=== PATIENT | male | born 1930 | race Caucasian/White ===

== ENCOUNTER 2017-12-17 13:54 | Emergency (ER) | payer OTHER, BC ==
[~2017-12-17 13:54] MED LIST: ATRIN INH; CMD4 PO; DOCU100C31 PO; FURO40TA3 PO; HYDR0.5T PO; LPT20 PO; LSN25 PO; MRLP17 PO; POTA10TA32 PO; PRT40 PO; SPIR25TA PO; TPRSR25 PO; XPNIN INH
[2017-12-17 13:56] VITALS: Ht 172.7 cm
[2017-12-17] MEDS ORDERED: ACETAMINOPHEN 500 MG TAB PO STA (14:19)
[2017-12-17] MEDS ORDERED: SODIUM CHLORIDE 0.9% 1000ML 1,000 ML IV STA ×2 (14:23→17:25)
[2017-12-17] MEDS ORDERED: OPTIRAY 320 IV PRN (14:30)
[2017-12-17] MEDS ORDERED: ASCO500T3 PO (14:35)
[2017-12-17] MEDS ORDERED: HYDR200T5 PO (14:35)
[2017-12-17] MEDS ORDERED: LOSA1TAB PO (14:35)
[2017-12-17] MEDS ORDERED: WARF2TAB PO ×2 (14:35)
[2017-12-17] MEDS ORDERED: FERR1TAB13 PO (14:35)
[2017-12-17] MEDS ORDERED: PANT40TA PO (14:35)
[2017-12-17] MEDS ORDERED: METO25TA3 PO (14:35)
--- NOTE | 2017-12-17 14:41 | EMERGENCY ROOM VISIT NOTE ---
History Report prepared by Mateus: Jero Hassan Under the Supervision of: Dr. Bea Fernandes D.O. First contact with patient: 14:04 Chief Complaint: CONFUSION Stated Complaint: CONFUSED,DIZZY History of Present Illness The patient is an 87 year old male who presents to the Emergency Room with complaints of persistent dizziness and weakness starting yesterday. Per the patient's son, the patient stared getting weak and not feeling well yesterday. He additionally got dizzy, and today he vomited after eating soup. The son states that the patient seemed disoriented, and he also had a fever. Pt now improved. The patient states that he has been having some mild abdominal pain which began after eating the soup and feeling nauseated, and he states that his last bowel movement was this morning at 0730, and it was normal. He denies any hematochezia or melena. He notes that he has a runny nose and mild cough, though he does not feel short of breath. The patient additionally states that he has been having more shoulder pain than usual, and he states that he has been unable to move it as well. 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 The patient denies any urinary symptoms. He is currently on blood thinners for a valve replacement. Patient lives with his at home. Source of History: patient, family Onset: yesterday Position: other (global) Quality: other (dizziness and weakness) Timing: other (persistent) Associated Symptoms: + fevers, + cough, + vomiting, + abdominal pain, No melena, No hematochezia, No urinary symptoms Review of Systems See HPI for pertinent positives & negatives. A total of 10 systems reviewed and were otherwise negative. Past Medical & Surgical Surgical Problems: (1) Heart valve replaced Family History Cancer Heart disease Social History Smoking Status: Former Smoker Marital Status: Housing Status: lives with family Occupation Status: retired Current/Historical Medications Scheduled Ascorbic Acid (Vitamin C), 500 MG PO BID Atorvastatin (Lipitor), 20 MG PO HS Ferrous Sulfate (Kp Ferrous Sulfate), 325 MG PO BID Furosemide (Lasix), 40-80 MG PO DAILY Hydroxychloroquine Sulfate (Plaquenil), 200 MG PO BID Ipratropium Myrtle (Atrovent Hfa), 2 PUFFS INH QID Losartan Potassium (Cozaar), 25 MG PO QAM Metoprolol Succinate (Toprol Xl), 12.5 MG PO BID Pantoprazole (Protonix), 40 MG PO QAM Potassium Chloride Microencaps (Potassium Chloride Er), 10 MEQ PO BID Warfarin Sodium (Coumadin), 4 MG PO [id number] Warfarin Sodium (Coumadin), 6 MG PO WK Allergies Coded Allergies: No Known Allergies (Unverified , 12/17/17) Physical Exam Vital Signs Date Time Temp Pulse Resp B/P (MAP) Pulse Ox O2 Delivery O2 Flow Rate FiO2 12/17/17 19:59 82 18 120/56 93 12/17/17 19:22 37.3 82 20 120/56 93 Room Air 12/17/17 19:11 65 20 109/53 94 Room Air 68 114/64 72 120/56 12/17/17 18:30 60 12/17/17 17:12 37.5 66 18 111/56 94 Room Air 12/17/17 16:07 37.6 65 18 131/79 94 Nasal Cannula 3.0 12/17/17 14:39 72 12/17/17 13:56 39.4 73 24 123/63 93 Room Air Physical Exam GENERAL: alert, well appearing, well nourished, no distress, non-toxic, hard of hearing EYE EXAM: normal conjunctiva, PERRL and EOM's grossly intact OROPHARYNX: no exudate, no erythema, lips, buccal mucosa, and tongue normal and mucous membranes are moist NECK: supple, no nuchal rigidity, no adenopathy, non-tender LUNGS: Clear to auscultation. Normal chest wall mechanics HEART: Systolic ejection murmur 3/6, S1 normal and S2 normal ABDOMEN: Mildly tympanitic, abdomen soft, non-tender, normo-active bowel sounds , no masses, no rebound or guarding. BACK: Back is symmetrical on inspection and there is no deformity, no midline tenderness, no CVA tenderness. SKIN: no rashes and no bruising UPPER EXTREMITIES: Decreased range of motion at the right shoulder secondary to pain. upper extremities are grossly normal. LOWER EXTREMITIES: 1+ pitting edema to the bilateral lower extremity. Pt and son state this is chronic. NEURO EXAM: Normal sensorium, cranial nerves II-XII grossly intact, normal speech, no gross weakness of arms, no gross weakness of legs. Medical Decision & Procedures ER Provider Diagnostic Interpretation: Radiology results have been interpreted by the radiologist and reviewed by me. CT head with without intravenous contrast. HISTORY: dizzy, vomiting, right neck pain/shoulder pain TECHNIQUE: Multiaxial CT images of the head were performed both before and after the intravenous administration of contrast. COMPARISON STUDY: Head CT 06/03/2015. FINDINGS: The calvarium and skull base are intact. Paranasal sinuses and left mastoid air cells are clear. Small right mastoid effusion. Mild atrophy which is likely age-related. No abnormal enhancement. There is no mass, hematoma, midline shift, acute infarct. IMPRESSION: No acute intracranial abnormality. Electronically signed by: Avelino Chamberlain M.D. 12/17/2017 4:20 PM Dictated Date/Time: 12/17/2017 4:16 PM CHEST AND ABDOMEN 2 VIEWS HISTORY: n/v, fever COMPARISON: Chest 06/04/2015. Abdomen and pelvis CT 05/28/2015. FINDINGS: The heart remains enlarged. No focal lung consolidations to suggest pneumonia. Aortic valve prosthesis is noted. Left-sided single lead pacemaker. No evidence for pulmonary edema. No pleural effusions. No pneumothorax. No pneumoperitoneum. No pneumatosis. Surgical clips within the pelvis. No dilated loops of bowel to suggest an obstruction. No renal or ureteral calculi identified. A few nondilated gas-filled loops of bowel seen within the right side the abdomen. IMPRESSION: 1. Stable cardiomegaly. 2. Unremarkable bowel gas pattern. No evidence for bowel obstruction. Electronically signed by: Avelino Chamberlain M.D. 12/17/2017 3:52 PM Dictated Date/Time: 12/17/2017 3:50 PM Laboratory Results 12/17/17 14:35 Red Blood Count 3.50, Mean Corpuscular Volume 98.0, Mean Corpuscular Hemoglobin 31.7, Mean Corpuscular Hemoglobin Concent 32.4, Mean Platelet Volume 9.5, Neutrophils (%) (Auto) 89.5, Lymphocytes (%) (Auto) 5.1, Monocytes (%) (Auto) 4.7, Eosinophils (%) (Auto) 0.2, Basophils (%) (Auto) 0.1, Neutrophils # (Auto) 8.69, Lymphocytes # (Auto) 0.50, Monocytes # (Auto) 0.46, Eosinophils # (Auto) 0.02, Basophils # (Auto) 0.01 12/17/17 14:35 Test 12/17/17 14:35 12/17/17 14:41 12/17/17 15:12 12/17/17 17:25 White Blood Count 9.72 K/uL (4.8-10.8) Red Blood Count 3.50 M/uL (4.7-6.1) Hemoglobin 11.1 g/dL (14.0-18.0) Hematocrit 34.3 % (42-52) Mean Corpuscular Volume 98.0 fL (80-100) Mean Corpuscular Hemoglobin 31.7 pg (25-34) Mean Corpuscular Hemoglobin Concent 32.4 g/dl (32-36) Platelet Count 163 K/uL (130-400) Mean Platelet Volume 9.5 fL (7.4-10.4) Neutrophils (%) (Auto) 89.5 % Lymphocytes (%) (Auto) 5.1 % Monocytes (%) (Auto) 4.7 % Eosinophils (%) (Auto) 0.2 % Basophils (%) (Auto) 0.1 % Neutrophils # (Auto) 8.69 K/uL (1.4-6.5) Lymphocytes # (Auto) 0.50 K/uL (1.2-3.4) Monocytes # (Auto) 0.46 K/uL (0.11-0.59) Eosinophils # (Auto) 0.02 K/uL (0-0.5) Basophils # (Auto) 0.01 K/uL (0-0.2) RDW Standard Deviation 56.4 fL (36.4-46.3) RDW Coefficient of Variation 15.7 % (11.5-14.5) Immature Granulocyte % (Auto) 0.4 % Immature Granulocyte # (Auto) 0.04 K/uL (0.00-0.02) Prothrombin Time 29.2 SECONDS (9.0-12.0) Prothromb Time International Ratio 2.8 (0.9-1.1) Anion Gap 9.0 mmol/L (3-11) Estimated GFR () 58.6 Estimated GFR (Non- 50.6 BUN/Creatinine Ratio 20.8 (10-20) Calcium Level 8.9 mg/dl (8.5-10.1) Magnesium Level 2.2 mg/dl (1.8-2.4) Total Bilirubin 0.6 mg/dl (0.2-1) Aspartate Amino Transf (AST/SGOT) 24 U/L (15-37) Alanine Aminotransferase (ALT/SGPT) 20 U/L (12-78) Alkaline Phosphatase 91 U/L (45-117) Troponin I 0.022 ng/ml (0-0.045) Total Protein 7.5 gm/dl (6.4-8.2) Albumin 3.3 gm/dl (3.4-5.0) Globulin 4.2 gm/dl (2.5-4.0) Albumin/Globulin Ratio 0.8 (0.9-2) Lipase 154 U/L (73-393) Bedside Lactic Acid Venous 1.36 mmol/L (0.90-1.70) Influenza Type A Antigen Neg for Influ A (NEG) Influenza Type B Antigen Neg for Influ B (NEG) Urine Color YELLOW Urine Appearance CLEAR (CLEAR) Urine pH 5.0 (4.5-7.5) Urine Specific [place] > 1.045 (1.000-1.030) Urine Protein NEG (NEG) Urine Glucose (UA) NEG (NEG) Urine Ketones NEG (NEG) Urine Occult Blood NEG (NEG) Urine Nitrite NEG (NEG) Urine Bilirubin NEG (NEG) Urine Urobilinogen NEG (NEG) Urine Leukocyte Esterase NEG (NEG) Laboratory results per my review. Medications Administered Medications (Trade) Dose Ordered Sig/Ivky Route Start Time Stop Time Status Last Admin Dose Admin Acetaminophen (Tylenol Tab) 1,000 mg NOW STAT PO 12/17/17 14:19 12/17/17 14:23 DC 12/17/17 15:06 1,000 MG Sodium Chloride 1,000 ml @ 500 mls/hr Q2H STAT IV 12/17/17 14:23 12/17/17 16:22 DC 12/17/17 15:10 500 MLS/HR ECG Indication: weakness, other (dizziness) Rate (beats per minute): 73 Rhythm: other (Paced rhythm) Findings: PVC, no acute ischemic change, left axis deviation, other (Prolonged QRS and QTc consistent with pacing) Change: EKG: Patient's electrocardiogram per my interpretation. ED Course 1404: The patient was evaluated in room B4. A complete history and physical exam was performed. 1419: Tylenol Tab 1000mg PO 1423: Sodium Chloride 1000 ml @ 500 mls/hr IV 1630: I reevaluated the patient, and he was not having anymore nausea. Repeat abdominal exam soft and nontender. He feels a little weak and light headed but improved, and I updated them on the results thus far. Son states pt appears improved. No recurrent confusion. 1916: I reassessed the patient, and he was able to walk around very well. No SOB during ambulation. Repeat abd exam soft/NT, pt tolerating po at bedside without complaints or symptoms. Pt states he feels much better since receiving IVF. No recurrent fevers. 1931: I had an extensive conversation with the patient and his son, and they are comfortable with him going home. I discussed symptoms to watch and return for, and they are agreeable to the plan. Discussed at length sx to watch/ return for, need for recheck by PCP in 1-2 days, diet/hydration, pending blood cultures, he and son verbalized understanding. Son states pt appears at his usual baseline at this time. Feels comfortable taking him home and will check on him frequently over the next several days. Medical Decision Differential diagnosis: Etiologies such as viral syndrome, otitis, pharyngitis, pneumonia, influenza, meningitis, urinary tract infection, sepsis, bacteremia, benign positional vertigo, dehydration, hypovolemia, anemia, tumor, infection, hypoglycemia, electrolyte abnormalities, cardiac sources, intracerebral event, toxicologic, neurologic, as well as others were entertained. Pt here oriented and at baseline per family. LIghtheaded recently with nausea and mild abd pain following meal today. Initial and repeat abdominal exams soft and NT. Pt with no recurrent fever. No obvious source of infection. No known sick contact. Pt observed here for many hours out of an abundance of caution and no evolution or worsening of symptoms. Extensive bedside discussion regarding dc vs admission. Pt improved with IVF and tylenol. I do not suspect mesenteric ischemia, colitis, perf, gi bleed, aaa, dissection, acs, bacteremia/sepsis. Doubt cholecystitic, pancreatitis, sbo. Doubt occult pneumonia. Doubt meningitis/encephalitis, I feel possible mild transient mentation possibly due to fever. Discussed adequate hydration and bland diet. Discussed at length sx to watch for, discussed possible ddx, discussed close f/ u. Pt well appearing at discharge, anxious to go home, verbalized understanding and agreeable with plans. Medication Reconcilliation Current Medication List: was personally reviewed by me Blood Pressure Screening Patient's blood pressure: Normal blood pressure Impression Primary Impression: Fever Additional Impressions: Lightheaded Nausea & vomiting Scribe Attestation The scribe's documentation has been prepared under my direction and personally reviewed by me in its entirety. I confirm that the note above accurately reflects all work, treatment, procedures, and medical decision making performed by me. Departure Information Dispostion Home / Self-Care Referrals Caleb Escobra M.D. (PCP) Forms HOME CARE DOCUMENTATION FORM, IMPORTANT VISIT INFORMATION, WORK / SCHOOL INSTRUCTIONS Patient Instructions ED Fever Control, ED Fever Unconf Cause, My [facility] Additional Instructions Please continue regular medications as prescribed. Your INR today (Coumadin level) was 2.8. Please sip clear liquids, primarily water, at regular intervals to stay well-hydrated. Please eat a bland diet until you're feeling better. Please continue to monitor your bowel movements for any changes if your stools appear black or use any blood, please return the emergency room. If you feel you are more unsteady or off-balance, develop chest pain, belly pain , recurrent vomiting, recurrent fevers, or you've any other new concerns please return the emergency room. Use Tylenol as needed for pain. Blood cultures were sent as a precaution. If these are abnormal, you'll receive a phone call. Please: Follow up with her family doctor in the next 2 days to be rechecked as a precaution. Problem Qualifiers Primary Impression: Fever Fever type: unspecified Qualified Codes: R50.9 - Fever, unspecified Additional Impressions: Nausea & vomiting Vomiting type: unspecified Vomiting Intractability: non-intractable Qualified Codes: R11.2 - Nausea with vomiting, unspecified
[2017-12-17 15:00] LABS: BASO % 0.1 %; BASO ABS # 0.01 K/uL (0-0.2); EOS % 0.2 %; EOS ABS # 0.02 K/uL (0-0.5); HEMATOCRIT 34.3 % (42-52); HEMOGLOBIN 11.1 g/dL (14.0-18.0); IG# 0.04 K/uL (0.00-0.02); LYMPH % 5.1 %; MEAN CORPUSCULAR HEMOGLOBIN 31.7 pg (25-34); MEAN CORPUSCULAR HGB CONC 32.4 g/dl (32-36); MEAN PLATELET VOLUME 9.5 fL (7.4-10.4); MONO % 4.7 %; MONO ABS # 0.46 K/uL (0.11-0.59); NEUT % 89.5 %; NEUT ABS # 8.69 K/uL (1.4-6.5); PLATELET COUNT 163 K/uL (130-400); RED CELL DISTRIBUTION WIDTH CV 15.7 % (11.5-14.5); RED CELL DISTRIBUTION WIDTH SD 56.4 fL (36.4-46.3); WHITE BLOOD COUNT 9.72 K/uL (4.8-10.8)
[2017-12-17 15:08] LABS: INR 2.8 (0.9-1.1)
[2017-12-17 15:14] LABS: ALBUMIN 3.3 gm/dl (3.4-5.0); ALT/SGPT 20 U/L (12-78); BLOOD UREA NITROGEN 26 mg/dl (7-18); CALCIUM 8.9 mg/dl (8.5-10.1); CARBON DIOXIDE 28 mmol/L (21-32); CREATININE 1.26 mg/dl (0.60-1.40); GLUCOSE 118 mg/dl (70-99); LIPASE 154 U/L (73-393); POTASSIUM 4.2 mmol/L (3.5-5.1); SODIUM 138 mmol/L (136-145)
[2017-12-17 15:19] LABS: ALKALINE PHOSPHATASE 91 U/L (45-117); AST/SGOT 24 U/L (15-37); TOTAL PROTEIN 7.5 gm/dl (6.4-8.2)
[2017-12-17 15:40] LABS: INFLUENZA B ANTIGEN Neg for Influ B (NEG)
--- NOTE | 2017-12-17 15:53 | DIAGNOSTIC IMAGING REPORT ---
CHEST AND ABDOMEN 2 VIEWS HISTORY: n/v, fever COMPARISON: Chest 06/04/2015. Abdomen and pelvis CT 05/28/2015. FINDINGS: The heart remains enlarged. No focal lung consolidations to suggest pneumonia. Aortic valve prosthesis is noted. Left-sided single lead pacemaker. No evidence for pulmonary edema. No pleural effusions. No pneumothorax. No pneumoperitoneum. No pneumatosis. Surgical clips within the pelvis. No dilated loops of bowel to suggest an obstruction. No renal or ureteral calculi identified. A few nondilated gas-filled loops of bowel seen within the right side the abdomen. IMPRESSION: 1. Stable cardiomegaly. 2. Unremarkable bowel gas pattern. No evidence for bowel obstruction. Electronically signed by: Avelino Chamberlain M.D. 12/17/2017 3:52 PM Dictated Date/Time: 12/17/2017 3:50 PM
--- NOTE | 2017-12-17 16:22 | DIAGNOSTIC IMAGING REPORT ---
CT head with without intravenous contrast. HISTORY: dizzy, vomiting, right neck pain/shoulder pain TECHNIQUE: Multiaxial CT images of the head were performed both before and after the intravenous administration of contrast. COMPARISON STUDY: Head CT 06/03/2015. FINDINGS: The calvarium and skull base are intact. Paranasal sinuses and left mastoid air cells are clear. Small right mastoid effusion. Mild atrophy which is likely age-related. No abnormal enhancement. There is no mass, hematoma, midline shift, acute infarct. IMPRESSION: No acute intracranial abnormality. Electronically signed by: Avelino Chamberlain M.D. 12/17/2017 4:20 PM Dictated Date/Time: 12/17/2017 4:16 PM
[2017-12-17 19:22] VITALS: TEMP 37.3
[2017-12-17 19:59] VITALS: BP 120/56; PULSE 82; O2SAT 93
== END 2017-12-17 20:02 | disposition home or self-care (01) ==
LOC: C.EDB 13:56
DX: R50.9 Fever, unspecified (principal); R11.2 Nausea with vomiting, unspecified; R42 Dizziness and giddiness; Z95.2 Presence of prosthetic heart valve; Z80.9 Family history of malignant neoplasm, unspecified; Z87.891 Personal history of nicotine dependence; Z79.01 Long term (current) use of anticoagulants; Z79.899 Other long term (current) drug therapy

== ENCOUNTER → 2018-07-04 | Outpatient (CLI) | payer OTHER, BC ==
[~2018-07-04] MED LIST changes: +ACET-1693 PO; +ASCO500T3 PO; -ATRIN INH; -CMD4 PO; -DOCU100C31 PO; +FERR1TAB13 PO; +FLM4 PO; -HYDR0.5T PO; +HYDR200T5 PO; +LOSA1TAB PO; -LSN25 PO; +METO25TA4 PO; -MRLP17 PO; +MULT-190 PO; +PANT40TA PO; -PRT40 PO; -SPIR25TA PO; -TPRSR25 PO; +WARF2TAB PO; -XPNIN INH
== END | disposition home or self-care (01) ==
LOC: C.LAB1850 15:16
PROVIDERS: ATTEND Internal Medicine Rheumatology
DX: M81.0 Age-related osteoporosis without current pathological fracture (principal)

== ENCOUNTER → 2018-07-10 | Outpatient (CLI) | payer OTHER, BC | END | disposition home or self-care (01) | LOC: C.MAMM 07:50 | PROVIDERS: ATTEND Internal Medicine Rheumatology | DX: M05.9 Rheumatoid arthritis with rheumatoid factor, unspecified (principal); Z79.899 Other long term (current) drug therapy; M81.0 Age-related osteoporosis without current pathological fracture; M85.80 Other specified disorders of bone density and structure, unspecified site; E55.9 Vitamin D deficiency, unspecified ==

== ENCOUNTER 2018-12-05 04:05 | Inpatient (IN) ==
[2018-12-05 04:42] LABS: Hematocrit (blood only) 30.4 % (42-52); Hemoglobin 9.4 g/dL (14.0-18.0); Mean Corpuscular Hgb Conc 30.9 g/dL (32-36); Mean Corpuscular Volume 93.8 fL (80-100); Mean Platelet Volume 8.2 fL (7.4-10.4); Platelet Count 230 K/uL (130-400); RDW Coefficient of Variation 17.3 % (11.5-14.5); RDW Standard Deviation 59.1 fL (36.4-46.3); Red Blood Count 3.24 M/uL (4.7-6.1); White Blood Count 7.09 K/uL (4.8-10.8)
[2018-12-05 05:05] LABS: INR 2.3 (0.9-1.1); Prothrombin Time 21.8 Seconds (9.0-12.0)
[2018-12-05 06:12] LABS: Bilirubin Urine Negative (Negative); Glucose Urine UA Negative (Negative); Ketones Urine Negative (Negative); Leukocyte Esterase Urine Negative (Negative); Nitrite Urine Negative (Negative); Protein Urine 3+ (Negative); Urobilinogen Urine Negative (Negative)
[2018-12-05 06:16] LABS: Appearance Urine Turbid (Clear); Color Urine Red
[2018-12-05 06:30] LABS: WBC Urine Automated >30 /hpf (0-5)
[2018-12-05 06:31] LABS: Bacteria Urine Automated Negative (Negative); Cast Urine Automated 0 /lpf (0-5)
[2018-12-05 06:59] LABS: Calcium 8.5 mg/dl (8.5-10.1); Creatinine Clr Calc Pharmacy 34.5 ml/min; Est GFR (African American) 55.6; Est GFR (Non-African American) 47.9; Potassium 3.9 mmol/L (3.5-5.1)
--- NOTE | 2018-12-05 07:18 | Emergency Department Note ---
Entered by Arely Andrews acting as a scribe for History of Present Illness General Chief complaint: Urinary Symptoms Stated complaint: CAN'T URINATE Time Seen by Provider: 12/05/18 04:16 Source: patient and family (son) History of Present Illness Onset (ago): minute(s) ([facility]ACTICE PSYCHIATRIC NURSE) Location: abdomen Severity: similar to prior episodes Pain Consistency: + other (persistent ) Quality: + other (hematuria and difficulty urinating) Associated symptoms: + other (lower extremity swelling) The patient is a 88 year old male who presents to the Emergency Room with complaints of persistent urinary symptoms that earlier this morning, noting that he "came as soon as it started." The patient complains of hematuria and difficulty urinating. The patient states that this is similar to previous episodes. He reports that he last urinated a few hours ago. His son, at bedside , states that he has had a catheter to relieve his symptoms in the past. The patient's son reports that the patient has gone home with a catheter before, but it "just gets plugged up and we're back in the ER." He reports that the patient has been taken of Coumadin the past to help relieve his symptoms. The patient complains of lower extremity swelling. He reports a history of CHF and a valve replacement. Home Medications Home Medications Medication Instructions Recorded Confirmed Type atorvastatin 20 mg PO HS 09/21/18 12/05/18 History docusate sodium 100 mg PO BID PRN 09/21/18 12/05/18 History ferrous sulfate 325 mg PO BID 09/21/18 12/05/18 History hydroxychloroquine 200 mg PO BID 09/21/18 12/05/18 History pantoprazole 40 mg PO DAILY 09/21/18 12/05/18 History potassium chloride 10 meq PO BID 09/21/18 12/05/18 History tamsulosin 0.4 mg PO DAILY 09/21/18 12/05/18 History furosemide 40 mg PO BID 10/05/18 12/05/18 History metoprolol tartrate 12.5 mg PO BID 10/05/18 12/05/18 History ergocalciferol (vitamin D2) 50,000 unit PO WK 10/07/18 12/05/18 History prednisone 15 mg PO DAILY #1 tab 10/16/18 12/05/18 Rx acetaminophen [Tylenol Extra 500 mg PO Q4 PRN 11/14/18 12/05/18 History Strength] dextran 70-hypromellose 1 drp OPHTHALMIC (EYE) BID 11/14/18 12/05/18 History [Artificial Tears (PF)] vit C,L-Pf-wlnzz-lutein-zeaxan 1 tab PO BID 11/14/18 12/05/18 History [PreserVision AREDS-2] warfarin 4 mg PO HS 11/14/18 12/05/18 History Allergies Allergy/AdvReac Type Severity Reaction Status Date / Time No Known Allergies Allergy Verified 12/05/18 06:11 Past Med/Surg History Medical History Atrial fibrillation HTN (hypertension) (Chronic) Pacemaker (Resolved) 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) Prostate cancer (Resolved) H/O deep venous thrombosis (Resolved) Rheumatoid arthritis (Chronic) 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) GERD (gastroesophageal reflux disease) (Chronic) Dyslipidemia (Chronic) Blood clot in vein (Resolved) Hypertension (Chronic) CHF (congestive heart failure) (Chronic) Acute pancreatitis (Resolved) Pseudogout (Chronic) Surgical History S/P aortic valve replacement with bioprosthetic valve (Resolved) S/P prostatectomy (Resolved) Heart valve replaced (Chronic) Family History Other No pertinent family history Social History marital status: Current Living Situation: Spouse Feels Safe at Home: Yes and No Is there a partner from a previous relationship who is making you feel unsafe now?: No Smoking Status: Former smoker Second Hand Exposure: No Hx Alcohol Use: No Hx Substance Use: No Beliefs That Will Affect Care: None Preferred Language: Greenlandic Review of Systems See HPI for pertinent positives & negatives. and A total of 10 systems reviewed and were otherwise negative Physical Exam Vital Signs Vital Signs - 24 hr 12/05/18 04:09 12/05/18 05:32 12/05/18 06:25 Temperature 36.6 C Temperature Source Oral Sepsis Recent Fever Within 48 Hours No Sepsis Action Taken by Nursing No Action Required Pulse Rate 78 Pulse Rate [Left Finger] 61 62 Respiratory Rate 16 20 20 Respiratory Depth Normal Normal Blood Pressure 130/77 Blood Pressure [Right Arm] 126/57 L 118/60 Blood Pressure Mean 94 Blood Pressure Mean [Right Arm] 80 79 Pulse Oximetry 90 96 Oxygen Delivery Method Room Air Room Air HEENT: Head - normocephalic and atraumatic Pupils are equal, round, and reactive to light. Extraocular eye muscles are intact, and sclera are anicteric. Nose - moist nasal mucosa without discharge. Mouth - moist buccal mucosa. Oropharynx is nonerythematous and there is no tonsillar exudate or edema noted. Neck: Supple; no JVD, nuchal rigidity, cervical lymphadenopathy. Heart: Regular rate and rhythm. There is a normal S1 and S2 with no murmurs, clicks, or gallops appreciated. Lungs: Clear to auscultation bilaterally with no wheezes, rales, or rhonchi. Abdomen: Soft, completely nontender, nondistended, with good bowel sounds. There are no palpable pulsatile masses or hepatosplenomegaly. There is no guarding, rigidity, or rebound noted. Extremities: No evidence of cyanosis, clubbing, or edema. There are easily palpable peripheral pulses. Skin: Dry with poor turgor and no rashes. Course 0418: Past medical records reviewed. The patient was evaluated in room C09, and a complete history and physical examination were performed. A bladder scan was performed and showed greater than 300 mL of urine. A Calle catheter was placed. 0526: The nursing staff irrigated the bladder with a liter, and they got clots out. The urine turned pink, and then it turned red again. The nursing staff will put in a 3-way catheter. 0601: The nursing staff was unable to pass a 3-way catheter. I reviewed multiple previous notes from urology. The nursing staff removed the 3-way and replaced it with a calle catheter. 0614: I spoke with Dr. Yessi Amato, [facility] hospitalist, about the patient's case. She will evaluate the patient further. Consultations Consultation #1: I spoke with Dr. Yessi Amato, [facility] hospitalist, about the patient's case. She will evaluate the patient further. Time: 06:14 Medical Decision Making Differential Diagnosis The differential diagnosis includes: supratherapeutic INR and urinary retention. Medical Records Attestation: I reviewed the patient's medical records. Home Medications Current Medication List: was personally reviewed by me Laboratory Data Attestation: I reviewed the patient's lab results. Result diagrams: 12/05/18 04:30 12/05/18 04:30 Lab Results 12/05/18 12/05/18 12/05/18 Range/Units 04:30 04:30 04:30 WBC 7.09 (4.8-10.8) K/uL RBC 3.24 L (4.7-6.1) M/uL Hgb 9.4 L (14.0-18.0) g/dL Hct 30.4 L (42-52) % MCV 93.8 (80-100) fL MCH 29.0 (25-34) pg MCHC 30.9 L (32-36) g/dL RDW Std Deviation 59.1 H (36.4-46.3) fL RDW Coeff of Gopal 17.3 H (11.5-14.5) % Plt Count 230 (130-400) K/uL MPV 8.2 (7.4-10.4) fL PT 21.8 H (9.0-12.0) Seconds INR 2.3 H (0.9-1.1) Sodium 142 (136-145) mmol/L Potassium 3.9 (3.5-5.1) mmol/L Chloride 105 (98-107) mmol/L Carbon Dioxide 32 (21-32) mmol/L Anion Gap 5.0 (3-11) BUN 31 H (7-18) mg/dl Creatinine 1.31 (0.6-1.4) mg/dl Est Cr Clr Drug Dosing 34.5 ml/min Est GFR ( Amer) 55.6 Est GFR (Non-Af Amer) 47.9 BUN/Creatinine Ratio 24.0 H (10-20) Glucose 102 H (70-99) mg/dl Calcium 8.5 (8.5-10.1) mg/dl Urine Color Urine Appearance (Clear) Urine pH (4.5-7.5) Ur Specific Kaiser (1.000-1.030) Urine Protein (Negative) Urine Glucose (UA) (Negative) Urine Ketones (Negative) Urine Blood (Negative) Urine Nitrite (Negative) Urine Bilirubin (Negative) Urine Urobilinogen (Negative) Ur Leukocyte Esterase (Negative) Urine WBC (Auto) (0-5) /hpf Urine RBC (Auto) (0-4) /hpf U Hyaline Cast (Auto) (0-5) /lpf U Epithel Cells (Auto) (0-5) /lpf Urine Bacteria (Auto) (Negative) 12/05/18 Range/Units 05:25 WBC (4.8-10.8) K/uL RBC (4.7-6.1) M/uL Hgb (14.0-18.0) g/dL Hct (42-52) % MCV (80-100) fL MCH (25-34) pg MCHC (32-36) g/dL RDW Std Deviation (36.4-46.3) fL RDW Coeff of Gopal (11.5-14.5) % Plt Count (130-400) K/uL MPV (7.4-10.4) fL PT (9.0-12.0) Seconds INR (0.9-1.1) Sodium (136-145) mmol/L Potassium (3.5-5.1) mmol/L Chloride (98-107) mmol/L Carbon Dioxide (21-32) mmol/L Anion Gap (3-11) BUN (7-18) mg/dl Creatinine (0.6-1.4) mg/dl Est Cr Clr Drug Dosing ml/min Est GFR ( Amer) Est GFR (Non-Af Amer) BUN/Creatinine Ratio (10-20) Glucose (70-99) mg/dl Calcium (8.5-10.1) mg/dl Urine Color Red Urine Appearance Turbid H (Clear) Urine pH 7.0 (4.5-7.5) Ur Specific Kaiser 1.020 (1.000-1.030) Urine Protein 3+ H (Negative) Urine Glucose (UA) Negative (Negative) Urine Ketones Negative (Negative) Urine Blood 3+ H (Negative) Urine Nitrite Negative (Negative) Urine Bilirubin Negative (Negative) Urine Urobilinogen Negative (Negative) Ur Leukocyte Esterase Negative (Negative) Urine WBC (Auto) >30 H (0-5) /hpf Urine RBC (Auto) >30 H (0-4) /hpf U Hyaline Cast (Auto) 0 (0-5) /lpf U Epithel Cells (Auto) 10-20 H (0-5) /lpf Urine Bacteria (Auto) Negative (Negative) Blood Pressure Blood Pressure Findings: Low blood pressure Blood Pressure Disposition: further management by hospitalist MDM Narrative The patient is a 88 year old male who presents to the Emergency Room with complaints of persistent urinary symptoms that earlier this morning, noting that he "came as soon as it started." The patient has a history of previous episodes of urinary retention and hematuria with clots. The patient takes Coumadin for A. fib. 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 The patient had obvious hematuria with clots. A Calle catheter was placed in nursing staff irrigated with a liter of saline. This removed many clots in the urine was simply pink for some time. Nursing staff noted that the urine was becoming more dark red. They attempted to place a three-way catheter for bladder irrigation but were unsuccessful in passing the 20 [place] [address] three- way catheter. I asked them to replace Calle catheter. He continues to drain significant amount of blood. The patient is anemic at baseline and has an INR of 2.3. I discussed the case with the [facility] Hospitalist and they will evaluate for further management. Impression & Plan Hematuria Discharge Plan Visit Data Chief Complaint: Urinary Symptoms Stated Complaint: CAN'T URINATE ED Provider: Sarah Robin Discharge Problem: Hematuria Patient Disposition: Being Evaluated by Hospitalist Forms Stand Alone Forms: My [facility] Prescriptions Prescriptions: No Action potassium chloride 10 mEq Capsule, Extended Release 10 meq PO BID RF: 0 atorvastatin 20 mg Tablet 20 mg PO HS RF: 0 tamsulosin 0.4 mg Capsule 0.4 mg PO DAILY RF: 0 pantoprazole 40 mg Tablet,Delayed Release (Dr/Ec) 40 mg PO DAILY RF: 0 ferrous sulfate 325 mg (65 mg iron) Tablet 325 mg PO BID RF: 0 docusate sodium 100 mg Capsule 100 mg PO BID PRN (Reason: Constipation) RF: 0 hydroxychloroquine 200 mg Tablet 200 mg PO BID RF: 0 metoprolol tartrate 25 mg Tablet 12.5 mg PO BID RF: 0 furosemide 40 mg tablet 40 mg PO BID RF: 0 ergocalciferol (vitamin D2) 50,000 unit Capsule 50,000 unit PO WK RF: 0 prednisone 20 mg Tablet 15 mg PO DAILY Qty: 1 RF: 0 warfarin 4 mg Tablet 4 mg PO HS RF: 0 acetaminophen [Tylenol Extra Strength] 500 mg Tablet 500 mg PO Q4 PRN (Reason: mild pain/fever) RF: 0 dextran 70-hypromellose [Artificial Tears (PF)] Dropperette 1 drp OPHTHALMIC (EYE) BID RF: 0 vit C,F-Yv-vhigs-lutein-zeaxan [PreserVision AREDS-2] [id number] mg-unit-mg- mg Capsule 1 tab PO BID RF: 0 Referrals Referrals: PCP,NO [Primary Care Provider] - The scribe's documentation has been prepared under my direction and personally reviewed by me in its entirety. I confirm that the note above accurately reflects all work, treatment, procedures, and medical decision making performed by me.
--- NOTE | 2018-12-05 08:32 | History & Physical Report ---
Date of Service December 05, 2018 Assessment & Plan (1) Hematuria: (2) Prostate cancer: (3) S/P prostatectomy: -[facility] -Continue Lozano cath with irrigation, bladder scan QS and post void residuals to ensure not clot blockage -Hold Coumadin with gross hematuria at this point in time, resume as soon as able -Urology consulted, Dr. Mazariegos -Follow UCx (4) Atrial fibrillation: -Rate controlled, continue metoprolol 12.5 mg p.o. BID -HOLD Coumadin with gross hematuria as above: Normal home regimen is 4 mg 6x per week and then 6 mg on Mondays. -Consider cardiology consultation or discussion with their team regarding thromboembolic prophylaxis (5) S/P aortic valve replacement with bioprosthetic valve: (6) Aortic stenosis: (7) H/O deep venous thrombosis: (8) Pacemaker: (9) HTN (hypertension): (10) CHF (congestive heart failure): - Chronic diastolic - continue Lasix 40 mg p.o. QAM and 20 mg Qafternoon, metoprolol as above - Follow volume status, currently with 1+ pitting in BLE but pt reports this is about normal, no sob, adequate pulse ox on RA, +faint crackles in lung bibasilarly at time of admission. -Follows with Heart Failure clinic as outpatient - Follows with Dr. Bruner for pacemaker device (11) GERD (gastroesophageal reflux disease): -Continue Protonix 40 mg daily (12) Dyslipidemia: -Continue statin therapy daily (13) Rheumatoid arthritis: -Follows with Dr. Owens as an outpatient -Continue hydroxychloroquine 200 mg BID (14) Vitamin D deficiency: -Continue supplementation (15) DVT prophylaxis: -Teds, SCDs, no chemical anticoagulation in the setting of hematuria. Holding Coumadin as above. History of Present Illness Primary Care Provider: NO PCP This is an 88-year-old male with past medical history of diastolic CHF, atrial fibrillation, history of bioprosthetic valve on Coumadin, HTN, HLD, rheumatoid arthritis, history of DVT, prostate cancer s/p prostatectomy, and history of hematuria who presents to the ER with acute onset of hematuria. Patient reports he was in his normal state of health yesterday and had clear yellow urine. About midnight patient woke up to use the restroom and noticed bright red urine. He also complained of burning with urination. He denies any abdominal pain or cramping. Denies lightheadedness or dizziness. Patient lives at home with his , typically uses a walker for ambulation. He has no other acute complaints at this point in time. Hemoglobin is stable at 9.4, improved compared to last time patient was in the hospital in September where it was around 7. INR is 2.3 Allergies Allergy/AdvReac Type Severity Reaction Status Date / Time No Known Allergies Allergy Verified 12/05/18 06:11 Home Medications Home Medications Medication Instructions Recorded Confirmed Type atorvastatin 20 mg PO HS 09/21/18 12/05/18 History docusate sodium 100 mg PO BID PRN 09/21/18 12/05/18 History ferrous sulfate 325 mg PO BID 09/21/18 12/05/18 History hydroxychloroquine 200 mg PO BID 09/21/18 12/05/18 History pantoprazole 40 mg PO DAILY 09/21/18 12/05/18 History potassium chloride 10 meq PO BID 09/21/18 12/05/18 History tamsulosin 0.4 mg PO DAILY 09/21/18 12/05/18 History furosemide 40 mg PO QAM 10/05/18 12/05/18 History metoprolol tartrate 12.5 mg PO BID 10/05/18 12/05/18 History ergocalciferol (vitamin D2) 50,000 unit PO WK 10/07/18 12/05/18 History acetaminophen [Tylenol Extra 500 mg PO Q4 PRN 11/14/18 12/05/18 History Strength] dextran 70-hypromellose 1 drp OPHTHALMIC (EYE) BID 11/14/18 12/05/18 History [Artificial Tears (PF)] vit C,Z-Zc-xvyxi-lutein-zeaxan 1 tab PO BID 11/14/18 12/05/18 History [PreserVision AREDS-2] warfarin 4 mg PO HS 11/14/18 12/05/18 History furosemide 20 mg PO QPM 12/05/18 12/05/18 History Past Med/Surg History Medical History Vitamin D deficiency Atrial fibrillation HTN (hypertension) (Chronic) Pacemaker (Resolved) 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) Prostate cancer (Resolved) H/O deep venous thrombosis (Resolved) Rheumatoid arthritis (Chronic) 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) GERD (gastroesophageal reflux disease) (Chronic) Dyslipidemia (Chronic) Blood clot in vein (Resolved) Hypertension (Chronic) CHF (congestive heart failure) (Chronic) Acute pancreatitis (Resolved) Pseudogout (Chronic) Surgical History S/P aortic valve replacement with bioprosthetic valve (Resolved) S/P prostatectomy (Resolved) Heart valve replaced (Chronic) Family History Other No pertinent family history Social History marital status: Current Living Situation: Spouse Other Information That Helps Us Care for You: No Feels Safe at Home: Yes Safety Concerns: Feels Safe At This Time Smoking Status: Former smoker Second Hand Exposure: No Hx Alcohol Use: No Hx Substance Use: No Beliefs That Will Affect Care: None Preferred Language: Wolof Communication Ability: Effective Review of Systems Constitutional: No fever, sweats or chills Eyes: No diplopia, no worsening or blurred vision ENT: normal hearing, no trouble swallowing Respiratory: No cough, sputum, dyspnea at rest or on exertion Cardiovascular: No chest pain, tightness or palpitations, dry weight of 155-160. Abdomen: No pain, nausea, vomiting, diarrhea or constipation Musculoskeletal: No joint pain, calf pain, minimal BLE swelling at baseline Neurologic: No weakness, numbness/tingling, or balance problems Uurological: As per HPI Skin: No rash or itch Physical Exam 2 Vital Signs (Past 24 Hours): Last Vital Signs Temp 36.6 C 12/05/18 04:09 Pulse 60 12/05/18 08:03 Resp 18 12/05/18 08:03 BP 118/58 L 12/05/18 08:03 Pulse Ox 94 12/05/18 08:03 Physical Exam: General: awake, alert, no apparent distress Head: Normocephalic, atraumatic ENT: PERRL, EOMI, no pharyngeal exudate, mucous membranes moist Chest: Clear to auscultation, + faint crackles at bases bilaterally, on room air , no other adventitious breath sounds Cardiac: Paced rhythm, + ALEK with radiation to RUSB grade III/, no JVD, normal peripheral pulses, good capillary refill Abdominal: NABS x 4 quadrants, soft, nontender to palpation, no rebound, guarding or tenderness, Lozano cath in place draining bright red urine, no clots. Extremities: Normal inspection, no peripheral edema or erythema, calfs nontender to palpation Psych: Normal mood and affect Neuro: AAO x 3, strength intact bilaterally and related 5/5, no motor deficits, speech is clear, no peripheral sensory deficits Results & Data Diagnostic Findings No new imaging to review. Code Status & VTE Plan Code Status Full Supervising Physician Co-Signing Physician Notes Patient seen and examined, discussed with physician assistant professor in family studies about patient condition and care plan, agree current care plan, Subjective: Independence urine in Lozano catheter, no other complaint Review of Systems Constitutional: negative weakness, or fatigue Respiratory: no cough, sputum, wheezing, or dyspnea on exertion Cardiac: No chest pain, No orthopnea, No PND, No claudication, No palpitations , Abdomen: No pain, No nausea, No vomiting, No diarrhea, Musculoskeletal: No joint pain, No muscle pain, No swelling, No calf pain, No problem reported : See above, Neurologic: No paralysis, No weakness, No numbness/tingling, No vertigo, No balance problems Psychiatric: No depression symptoms, No anhedonism, No anxiety, No insomnia, No substance abuse Heme: No abnormal bleeding/bruising, No clotting problems, No swollen lymph nodes, No night sweats Skin: No rash, No itch, No new/changing skin lesions, Objective: General Appearance: WD/WN, no apparent distress, pleasant and smiling, Eyes: normal inspection, PERRL, EOMI, sclerae normal ENT: normal ENT inspection, hearing grossly normal, pharynx normal Neck: supple, no adenopathy, thyroid normal, no JVD, no carotid bruits, trachea midline Respiratory/Chest: chest non-tender, normal breath sounds, no respiratory distress, no accessory muscle use, breath sounds, rales, wheezing Cardiovascular: regular rate, rhythm, no JVD, soft murmur Abdomen: normal bowel sounds, non tender, soft, no organomegaly, catheter in place Extremities: normal range of motion, non-tender, normal inspection, capillary refill is normal, no cyanosis clubbing Neurologic/Psychiatric: process description writer II-XII nml as tested, no motor/sensory deficits, alert, normal mood/affect, oriented x 3 Skin: normal color, warm/dry, no rash Lymphatic: no adenopathy Assessment and plan: 88-year-old male admitted because of hematuria, history of prostate cancer S/P prostatectomy and radiation treatment, Urology consulted, Dr. Mazariegos, urology input appreciated, Lozano catheter, patient monitor, follow-up H&H, hold Coumadin, Follow UCx Atrial fibrillation: HOLD Coumadin S/P aortic valve replacement with bioprosthetic valve: Urology input appreciated, Discussed with patient about risk and benefit of hold Coumadin, he understands and agreed _ (1) Hematuria Glomerular morphologic changes: Hematuria type: unspecified type Qualified Code(s): R31.9 - Hematuria, unspecified (2) Atrial fibrillation Atrial fibrillation type: chronic Qualified Code(s): I48.2 - Chronic atrial fibrillation (3) GERD (gastroesophageal reflux disease) Esophagitis presence: esophagitis presence not specified Qualified Code(s): K21.9 - Gastro-esophageal reflux disease without esophagitis (4) HTN (hypertension) Hypertension type: essential hypertension Qualified Code(s): I10 - Essential (primary) hypertension
[2018-12-05] MEDS ORDERED: ACETAMINOPHEN 500 MG TAB PO PRN (09:31)
[2018-12-05] MEDS ORDERED: ONDANSETRON INJ 2 MG/ML 2 ML VIAL IV PRN (09:31)
[2018-12-05] MEDS ORDERED: DOCUSATE SODIUM 100 MG CAP PO PRN (09:31)
[2018-12-05] MEDS: ARTIFICIAL TEARS OP SCH ×2 (10:34→20:53)
[2018-12-05] MEDS: FUROSEMIDE 40 MG TAB PO SCH (10:36)
[2018-12-05] MEDS: FERROUS SULFATE 325 MG TAB PO SCH ×2 (10:36→20:53)
[2018-12-05] MEDS: TAMSULOSIN HCL 0.4 MG CAP PO SCH (10:36)
[2018-12-05] MEDS: PANTOprazole 40 MG TAB PO SCH (10:36)
[2018-12-05] MEDS: METOPROLOL TARTRATE 25 MG TAB PO SCH ×2 (10:36→20:53)
[2018-12-05] MEDS: POTASSIUM CHLORIDE 10 MEQ TABCR PO SCH ×2 (10:36→15:57)
[2018-12-05] MEDS: HYDROXYCHLOROQUINE SULFATE 200 MG TAB PO SCH ×2 (10:36→20:56)
--- NOTE | 2018-12-05 11:02 | Urology Consultation ---
Date of Consultation December 05, 2018 Assessment & Plan (1) Hematuria: 88yo M with recurrent episodes of gross hematuria s/p prostatectomy, radiation cystitis. Similar event requiring hospitalization in September, notes reviewed. 16F Lozano catheter intact, draining wynn-colored urine. No clots. Catheter not bothersome, denies bladder spasms. H/H, WBC and Cr stable. UC&S pending. Patient comfortable, eating breakfast. No surgical intervention at this time. Will discuss with Dr. Moon. If wynn-colored urine continues tomorrow without clots, may consider conversion to 3-way catheter and instill Alum 1% or 2% x48 hours in attempt to temporize situation. We will continue to follow closely with primary service. History of Present Illness Reason for Consultation: hematuria Requesting Physician: hematuria Attending Physician: Navdeep Carrington MD, PhD, [facility] History of Present Illness 88YO M, well known to our practice with hx of prostate cancer and s/p prostatectomy, radiation cystitis, BNC with panurethral stricture. Presented to ED on 12/05 with hematuria and difficulty urinating. ED irrigated with > 1 L NS, clots irrigated to light pink then to red. At time of evaluation, patient is comfortable sitting in bed, eating breakfast. 16Fr catheter in place. draining translucent wynn red. No clots appreciated. Allergies Allergy/AdvReac Type Severity Reaction Status Date / Time No Known Allergies Allergy Verified 12/05/18 06:11 Home Medications Home Medications Medication Instructions Recorded Confirmed Type atorvastatin 20 mg PO HS 09/21/18 12/05/18 History docusate sodium 100 mg PO BID PRN 09/21/18 12/05/18 History ferrous sulfate 325 mg PO BID 09/21/18 12/05/18 History hydroxychloroquine 200 mg PO BID 09/21/18 12/05/18 History pantoprazole 40 mg PO DAILY 09/21/18 12/05/18 History potassium chloride 10 meq PO BID 09/21/18 12/05/18 History tamsulosin 0.4 mg PO DAILY 09/21/18 12/05/18 History furosemide 40 mg PO QAM 10/05/18 12/05/18 History metoprolol tartrate 12.5 mg PO BID 10/05/18 12/05/18 History ergocalciferol (vitamin D2) 50,000 unit PO WK 10/07/18 12/05/18 History acetaminophen [Tylenol Extra 500 mg PO Q4 PRN 11/14/18 12/05/18 History Strength] dextran 70-hypromellose 1 drp OPHTHALMIC (EYE) BID 11/14/18 12/05/18 History [Artificial Tears (PF)] vit C,Y-Kn-zurxb-lutein-zeaxan 1 tab PO BID 11/14/18 12/05/18 History [PreserVision AREDS-2] warfarin 4 mg PO HS 11/14/18 12/05/18 History furosemide 20 mg PO QPM 12/05/18 12/05/18 History Patient History Medical History Vitamin D deficiency Atrial fibrillation HTN (hypertension) (Chronic) Pacemaker (Resolved) 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) Prostate cancer (Resolved) H/O deep venous thrombosis (Resolved) Rheumatoid arthritis (Chronic) 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) GERD (gastroesophageal reflux disease) (Chronic) Dyslipidemia (Chronic) Blood clot in vein (Resolved) Hypertension (Chronic) CHF (congestive heart failure) (Chronic) Acute pancreatitis (Resolved) Pseudogout (Chronic) Surgical History S/P aortic valve replacement with bioprosthetic valve (Resolved) S/P prostatectomy (Resolved) Heart valve replaced (Chronic) Family History Other No pertinent family history Social History marital status: Current Living Situation: Spouse Other Information That Helps Us Care for You: No Feels Safe at Home: Yes Safety Concerns: Feels Safe At This Time Smoking Status: Former smoker Second Hand Exposure: No Hx Alcohol Use: No Hx Substance Use: No Beliefs That Will Affect Care: None Preferred Language: Wolof Communication Ability: Effective Review of Systems Constitutional: no fever, no chills and no sweats Eyes: no diplopia Ear, Nose, Mouth, Throat: no problem reported Respiratory: no cough Cardiovascular: no chest pain Gastrointestinal: no abdominal pain Genitourinary (Male): no difficulty urinating, no urinary incontinence and no urinary urgency Integumentary: no rash Psychiatric: no hopelessness Endocrine: no fatigue Physical Exam 2 Vital Signs (Past 24 Hours): Last Vital Signs Temp 36.5 C 12/05/18 09:31 Pulse 63 12/05/18 09:31 Resp 22 12/05/18 09:31 BP 136/72 12/05/18 09:31 Pulse Ox 93 12/05/18 09:31 Constitutional: well developed, well nourished and average body habitus; no acute distress Neck: trachea midline Respiratory: normal respiratory effort; no respiratory distress, no labored breathing and does not use accessory muscles Cardiovascular: Vessels: no JVD Gastrointestinal (Abdomen): Percussion/Palpation: abdomen soft; no guarding Skin: no rashes, warm and dry Psychiatric: A+Ox3, euthymic affect Genitourinary: no penile swelling 16fr catheter intact. No edema. drainage or signs of urethral trauma. Results & Data Laboratory Results Selected Entries 12/05/18 09:31 12/05/18 11:43 Temperature 36.5 C 36.9 C Temperature Source Oral Oral Pulse Rate [Left Finger] 63 60 Respiratory Rate 20 Blood Pressure [Right Arm] 136/72 111/53 L Pulse Oximetry 93 95 Oxygen Delivery Method Room Air Room Air Laboratory Tests 12/05/18 12/05/18 04:30 04:30 WBC 7.09 Hgb 9.4 L Hct 30.4 L BUN 31 H Creatinine 1.31 _ (1) Hematuria Glomerular morphologic changes: Hematuria type: unspecified type Qualified Code(s): R31.9 - Hematuria, unspecified
[2018-12-05] MEDS: FUROSEMIDE 20 MG TAB PO SCH (15:45)
[2018-12-05] MEDS: ATORVASTATIN 20 MG TAB PO SCH (20:53)
[2018-12-06 05:52] LABS: Hematocrit (blood only) 28.9 % (42-52); Mean Corpuscular Hgb Conc 31.1 g/dL (32-36); Mean Corpuscular Volume 93.2 fL (80-100); Mean Platelet Volume 8.9 fL (7.4-10.4); Platelet Count 232 K/uL (130-400); RDW Coefficient of Variation 17.4 % (11.5-14.5); RDW Standard Deviation 59.3 fL (36.4-46.3); White Blood Count 7.39 K/uL (4.8-10.8)
[2018-12-06 05:59] LABS: INR 2.3 (0.9-1.1); Prothrombin Time 22.4 Seconds (9.0-12.0)
[2018-12-06 06:32] LABS: BUN Creatinine Ratio 22.6 (10-20); Calcium 8.3 mg/dl (8.5-10.1); Est GFR (African American) 66.4; Est GFR (Non-African American) 57.3; Potassium 3.9 mmol/L (3.5-5.1)
[2018-12-06 06:35] LABS: Albumin Globulin Ratio 0.9 (0.9-2); Bilirubin,Total 0.5 mg/dl (0.2-1); Globulin 3.5 gm/dl (2.5-4.0); Total Protein 6.5 gm/dl (6.4-8.2)
[2018-12-06] MEDS: PANTOprazole 40 MG TAB PO SCH (08:48)
[2018-12-06] MEDS: HYDROXYCHLOROQUINE SULFATE 200 MG TAB PO SCH ×2 (08:48→20:06)
[2018-12-06] MEDS: POTASSIUM CHLORIDE 10 MEQ TABCR PO SCH ×2 (08:48→16:54)
[2018-12-06] MEDS: FERROUS SULFATE 325 MG TAB PO SCH ×2 (08:48→20:06)
[2018-12-06] MEDS: ARTIFICIAL TEARS OP SCH ×2 (08:49→20:08)
[2018-12-06] MEDS: METOPROLOL TARTRATE 25 MG TAB PO SCH ×2 (08:49→20:06)
[2018-12-06] MEDS: TAMSULOSIN HCL 0.4 MG CAP PO SCH (08:49)
[2018-12-06] MEDS: FUROSEMIDE 40 MG TAB PO SCH (08:49)
--- NOTE | 2018-12-06 14:46 | Hospitalist Progress Note ---
Date of Service December 06, 2018 Assessment & Plan (1) Hematuria: (2) Prostate cancer: (3) S/P prostatectomy: (4) Atrial fibrillation: (5) S/P aortic valve replacement with bioprosthetic valve: (6) Aortic stenosis: (7) H/O deep venous thrombosis: (8) Pacemaker: (9) HTN (hypertension): (10) CHF (congestive heart failure): (11) GERD (gastroesophageal reflux disease): (12) Dyslipidemia: (13) Rheumatoid arthritis: (14) Vitamin D deficiency: (15) DVT prophylaxis: 88-year-old male admitted because of hematuria, history of prostate cancer S/P prostatectomy and radiation treatment, Gross hematuria , resolved Possible radiation cystitis history of prostate cancer S/P prostatectomy and radiation treatment, Urology consulted, Dr. Mazariegos, urology input appreciated, Continue Lozano catheter possible l acute blood loss anemia hemoglobin 9 from 9.4, relative stable , continue follow-up Atrial fibrillation: Rate controlled, resume Coumadin, f/u INR S/P aortic valve replacement with bioprosthetic valve: Discussed with patient about risk and benefit of hold Coumadin, he understands and agreed Dyslipidemia, vitamin D deficiency, GERD, stable continue current medication Will increase activity, waiting for input, possible remove Lozano catheter and discharged home soon Subjective Doing okay, no more hematuria, No complaint, Review of Systems Constitutional: Positive weakness, or fatigue Respiratory: no cough, sputum, wheezing, or dyspnea on exertion Cardiac: No chest pain, No orthopnea, No PND, No claudication, No palpitations , Abdomen: No pain, No nausea, No vomiting, No diarrhea, No constipation, No GI bleeding Musculoskeletal: No joint pain, No muscle pain, : Lozano catheter in place, No incontinence, No hematuria Neurologic: No paralysis, No weakness, No numbness/tingling, No vertigo, No balance problems Psychiatric: No depression symptoms, No anhedonism, No anxiety, No insomnia, No substance abuse Heme: No abnormal bleeding/bruising, No clotting problems, No swollen lymph nodes, No night sweats Skin: No rash, No itch, No new/changing skin lesions, No color change, No bleeding Physical Exam 2 Vital Signs (Past 24 Hours): Last Vital Signs Temp 36.8 C 12/06/18 08:20 Pulse 74 01/17/19 08:20 Resp 18 12/06/18 08:20 BP 119/63 12/06/18 08:20 Pulse Ox 92 12/06/18 08:20 _ (1) Hematuria Glomerular morphologic changes: Hematuria type: unspecified type Qualified Code(s): R31.9 - Hematuria, unspecified (2) Atrial fibrillation Atrial fibrillation type: chronic Qualified Code(s): I48.2 - Chronic atrial fibrillation (3) HTN (hypertension) Hypertension type: essential hypertension Qualified Code(s): I10 - Essential (primary) hypertension (4) GERD (gastroesophageal reflux disease) Esophagitis presence: esophagitis presence not specified Qualified Code(s): K21.9 - Gastro-esophageal reflux disease without esophagitis
--- NOTE | 2018-12-06 16:34 | Urology Progress Note ---
Date of Service December 06, 2018 Assessment & Plan (1) Hematuria: Hematuria cleared spontaneously overnight. Pt doing very well today, in good spirits. Vs stable. H/H, WBC and Cr remaining stable. UC&S pending- please treat based on sensitivites for 10-14d, if indicated. Discussed patient progression with Dr. Moon. Plan to restart coumadin tonight, aware. Would like to d/c catheter tomorrow AM and ensure patient spontaneously voids prior to discharge. If recurrence of hematuria overnight, please make us aware in AM prior to catheter removal. Subjective 88YO with recurrent episodes of gross hematuria, clot retention, indwelling catheter placed in ED. Mr. Lopez is doing very well today. Lozano catheter draining clear/hazy yellow without any intervention. No clots or hematuria. Patient denies any pain or discomfort. Tolerating catheter well. Denies any fevers, chills,n/v. Tolerating PO well. No family at bedside at time of eval. PT starting session, had patient to chair then ambulating in halls. Per nursing, plan to restart coumadin today. Review of Systems All systems reviewed & are unremarkable except as noted in HPI & below Physical Exam 2 Vital Signs (Past 24 Hours): Last Vital Signs Temp 36.6 C 12/06/18 15:29 Pulse 61 12/06/18 16:00 Resp 20 12/06/18 15:29 BP 119/60 12/06/18 15:29 Pulse Ox 95 12/06/18 15:29 Physical Exam: A&Ox3 RRR Abd soft, nontender Catheter draining hazy yellow, no clots or hematuria psych - good judgement, in good spirits _ (1) Hematuria Glomerular morphologic changes: Hematuria type: unspecified type Qualified Code(s): R31.9 - Hematuria, unspecified
[2018-12-06] MEDS: FUROSEMIDE 20 MG TAB PO SCH (16:55)
[2018-12-06] MEDS: WARFARIN SOD 4 MG TAB PO SCH (16:55)
[2018-12-06] MEDS: ATORVASTATIN 20 MG TAB PO SCH (20:06)
[2018-12-07] MEDS ORDERED: SODIUM CHLORIDE 0.65% NA SOLN 45 ML (OCEAN) ONE (02:07)
[2018-12-07 06:05] LABS: Basophils # (auto) 0.05 K/uL (0-0.2); Basophils % (auto) 0.7 %; Eosinophils # (auto) 0.92 K/uL (0-0.5); Eosinophils % (auto) 12.3 %; Hematocrit (blood only) 28.2 % (42-52); Hemoglobin 8.8 g/dL (14.0-18.0); Immature Granulocytes # (auto) 0.01 K/uL (0.00-0.02); Immature Granulocytes % (auto) 0.1 %; Lymphocytes # (auto) 0.64 K/uL (1.2-3.4); Lymphocytes % (auto) 8.6 %; Mean Corpuscular Hgb Conc 31.2 g/dL (32-36); Mean Corpuscular Volume 92.5 fL (80-100); Mean Platelet Volume 8.3 fL (7.4-10.4); Monocytes # (auto) 0.95 K/uL (0.11-0.59); Monocytes % (auto) 12.8 %; Neutrophils # (auto) 4.88 K/uL (1.4-6.5); Neutrophils % (auto) 65.5 %; Platelet Count 212 K/uL (130-400); RDW Coefficient of Variation 17.2 % (11.5-14.5); RDW Standard Deviation 58.1 fL (36.4-46.3); Red Blood Count 3.05 M/uL (4.7-6.1); White Blood Count 7.45 K/uL (4.8-10.8)
[2018-12-07 06:14] LABS: INR 2.2 (0.9-1.1); Prothrombin Time 21.4 Seconds (9.0-12.0)
[2018-12-07 06:36] LABS: Albumin Level 2.8 gm/dl (3.4-5.0); BUN Creatinine Ratio 20.7 (10-20); Calcium 8.1 mg/dl (8.5-10.1); Creatinine Clr Calc Pharmacy 40.3 ml/min; Est GFR (African American) 67.1; Est GFR (Non-African American) 57.9; Magnesium 2.5 mg/dl (1.8-2.4); Poikilocytosis Present; Potassium 3.9 mmol/L (3.5-5.1)
[2018-12-07 06:39] LABS: Albumin Globulin Ratio 0.8 (0.9-2); Bilirubin,Total 0.5 mg/dl (0.2-1); Globulin 3.6 gm/dl (2.5-4.0); Phosphorus 2.7 mg/dl (2.5-4.9); Total Protein 6.4 gm/dl (6.4-8.2)
[2018-12-07] MEDS: ARTIFICIAL TEARS OP SCH (09:02)
[2018-12-07] MEDS: FERROUS SULFATE 325 MG TAB PO SCH (09:02)
[2018-12-07] MEDS: POTASSIUM CHLORIDE 10 MEQ TABCR PO SCH ×2 (09:03→16:11)
[2018-12-07] MEDS: FUROSEMIDE 40 MG TAB PO SCH (09:04)
[2018-12-07] MEDS: TAMSULOSIN HCL 0.4 MG CAP PO SCH (09:05)
[2018-12-07] MEDS: METOPROLOL TARTRATE 25 MG TAB PO SCH (09:06)
[2018-12-07] MEDS: HYDROXYCHLOROQUINE SULFATE 200 MG TAB PO SCH (09:07)
[2018-12-07] MEDS: PANTOprazole 40 MG TAB PO SCH (09:08)
--- NOTE | 2018-12-07 10:52 | Discharge Summary ---
Date of Service December 07, 2018 Admission HPI Per Admitting Provider This is an 88-year-old male with past medical history of diastolic CHF, atrial fibrillation, history of bioprosthetic valve on Coumadin, HTN, HLD, rheumatoid arthritis, history of DVT, prostate cancer s/p prostatectomy, and history of hematuria who presents to the ER with acute onset of hematuria. Patient reports he was in his normal state of health yesterday and had clear yellow urine. About midnight patient woke up to use the restroom and noticed bright red urine. He also complained of burning with urination. He denies any abdominal pain or cramping. Denies lightheadedness or dizziness. Patient lives at home with his , typically uses a walker for ambulation. He has no other acute complaints at this point in time. Hemoglobin is stable at 9.4, improved compared to last time patient was in the hospital in September where it was around 7. INR is 2.3 Principal Diagnosis no Discharge Data Allergies Allergy/AdvReac Type Severity Reaction Status Date / Time No Known Allergies Allergy Verified 12/05/18 06:11 Consultations 12/05/18 06:10 ED Decision to Admit Stat 12/05/18 09:31 Consult Case Management - Discharge Planning Routine Consult Urology Routine Hospital Course (1) Hematuria: (2) Prostate cancer: (3) S/P prostatectomy: (4) Atrial fibrillation: (5) S/P aortic valve replacement with bioprosthetic valve: (6) Aortic stenosis: (7) H/O deep venous thrombosis: (8) Pacemaker: (9) HTN (hypertension): (10) CHF (congestive heart failure): (11) GERD (gastroesophageal reflux disease): (12) Dyslipidemia: (13) Rheumatoid arthritis: (14) Vitamin D deficiency: (15) DVT prophylaxis: 88-year-old male admitted because of hematuria, history of prostate cancer S/P prostatectomy and radiation treatment, Gross hematuria , resolved Possible radiation cystitis history of prostate cancer S/P prostatectomy and radiation treatment, Urology consulted, Dr. Mazariegos, urology input appreciated, has been Continue Lozano catheter, will remove prior to discharge, Per recommendation of urologist, has give Keflex empirically, and will discharge with Keflex for totally 10 days The reason I begun Keflex is because patient is on Coumadin, and I do not want to have antibiotic interaction with Coumadin too much, and othreason is patient' s urine culture is still pending possible l acute blood loss anemia hemoglobin 9 from 9.4, relative stable , continue follow-up Atrial fibrillation: Rate controlled, resume Coumadin, f/u INR, today's INR is 2.2 S/P aortic valve replacement with bioprosthetic valve: Discussed with patient about risk and benefit of hold Coumadin, he understands and agreed Dyslipidemia, vitamin D deficiency, GERD, stable continue current medication Discharge instruction : you have Hematuria which was resolved, UC&S pending, will give you Keflex for 10 days, upon discharge, PCP please follow-up of the urine culture results I have restarted coumadin , will need to watch for signs of bleedings and check PT/INR with your family doctor that you have used to be done you need to follow up with your primary care physician in 1 week, however need to check PT/INR in 2-3 days, and report the results to the PCP Subjective upon discharge Doing okay, no more hematuria, No complaint, Review of Systems upon discharge Constitutional: Positive weakness, or fatigue Respiratory: no cough, sputum, wheezing, or dyspnea on exertion Cardiac: No chest pain, No orthopnea, No PND, No claudication, No palpitations , Abdomen: No pain, No nausea, No vomiting, No diarrhea, No constipation, No GI bleeding Musculoskeletal: No joint pain, No muscle pain, : Lozano catheter in place, No incontinence, No hematuria Neurologic: No paralysis, No weakness, No numbness/tingling, No vertigo, No balance problems Psychiatric: No depression symptoms, No anhedonism, No anxiety, No insomnia, No substance abuse Heme: No abnormal bleeding/bruising, No clotting problems, No swollen lymph nodes, No night sweats Skin: No rash, No itch, No new/changing skin lesions, No color change, No bleeding Physical Exam upon discharge General Appearance: WD/WN, no apparent distress, pleasant, looks younger than his age, Eyes: normal inspection, PERRL, EOMI, sclerae normal ENT: normal ENT inspection, hearing grossly normal, pharynx normal Neck: supple, no adenopathy, thyroid normal, no JVD, no carotid bruits, trachea midline Respiratory/Chest: chest non-tender, normal breath sounds, no respiratory distress, no accessory muscle use, breath sounds, rales, wheezing Cardiovascular: irregular rate, rhythm, no JVD, no murmur Abdomen: normal bowel sounds, non tender, soft, no organomegaly, Lozano catheter in place, Extremities: normal range of motion, non-tender, normal inspection, joint has no limited range of motion, capillary refill is normal, no cyanosis clubbing Neurologic/Psychiatric: 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, no motor/sensory deficits, alert, normal mood/affect, oriented x 3 Skin: normal color, warm/dry, no rash Lymphatic: no adenopathy Lab data upon discharge Laboratory Results - last 24 hr 12/07/18 12/07/18 12/07/18 05:49 05:49 05:49 WBC 7.45 RBC 3.05 L Hgb 8.8 L Hct 28.2 L MCV 92.5 MCH 28.9 MCHC 31.2 L RDW Std Deviation 58.1 H RDW Coeff of Gopal 17.2 H Plt Count 212 MPV 8.3 Immature Gran % (Auto) 0.1 Neut % (Auto) 65.5 Lymph % (Auto) 8.6 [place] % (Auto) 12.8 Eos % (Auto) 12.3 Baso % (Auto) 0.7 Immature Gran # (Auto) 0.01 Neut # (Auto) 4.88 Lymph # (Auto) 0.64 L [place] # (Auto) 0.95 H Eos # (Auto) 0.92 H Baso # (Auto) 0.05 Poikilocytosis Present PT 21.4 H INR 2.2 H Sodium 139 Potassium 3.9 Chloride 106 Carbon Dioxide 27 Anion Gap 6.0 BUN 23 H Creatinine 1.12 Est Cr Clr Drug Dosing 40.3 Est GFR ( Amer) 67.1 Est GFR (Non-Af Amer) 57.9 BUN/Creatinine Ratio 20.7 H Glucose 86 Calcium 8.1 L Phosphorus 2.7 Magnesium 2.5 H Total Bilirubin 0.5 AST 17 ALT 17 Alkaline Phosphatase 73 Total Protein 6.4 Albumin 2.8 L Globulin 3.6 Albumin/Globulin Ratio 0.8 L Total Time Total Time Spent Total Time Spent (In Minutes): 35 Total Time Includes: Examination of the Patient, Discharge Planning, Medication Reconciliation and Communication With Other Providers Discharge Plan Discharge Items Patient Disposition: Home - Self-Care Reason For Visit: HEMATURIA Discharge Diagnosis: Hematuria Discharge Goals: Decrease discomfort, Diagnostic testing and Improve disease control Activity: Resume your previous activity Non-emergency contact: Primary Care Provider and Urologist Call non-emergency contact if: you have any medication questions, your symptoms worsen and your temperature is above 100.5 Diet: Heart Healthy Addtl Provider Instructions: you have Hematuria which was resolved, UC&S pending, will give you Keflex for 10 days, upon discharge, PCP please follow-up of the urine culture results I have restarted coumadin , will need to watch for signs of bleedings and check PT/INR with your family doctor that you have used to be done you need to follow up with your primary care physician in 1 week, however need to check PT/INR in 2-3 days, and report the results to the PCP - take medication as instructed, never overdose or any misuse, or take with alcohol, because misuse of medicine may cause organ damage or , call me , or your primary care physician if have questions of discharge medicaitons. - call your primary care physician, or go to local emergency room if has any fever/chill, chest pain, shortness of breathing, nausea/vomiting/abdominal pain , facial droop/slurry speech/local weakness, or if has any questions. - fall precaution - diet as instructed - you need to follow up with your subspecialist, such as Dr. Moon Prescriptions: New cephalexin [Keflex] 250 mg capsule 250 mg PO Q6H 10 Days Qty: 40 RF: 0 Continue potassium chloride 10 mEq Capsule, Extended Release 10 meq PO BID RF: 0 atorvastatin 20 mg Tablet 20 mg PO HS RF: 0 tamsulosin 0.4 mg Capsule 0.4 mg PO DAILY RF: 0 pantoprazole 40 mg Tablet,Delayed Release (Dr/Ec) 40 mg PO DAILY RF: 0 ferrous sulfate 325 mg (65 mg iron) Tablet 325 mg PO BID RF: 0 docusate sodium 100 mg Capsule 100 mg PO BID PRN (Reason: Constipation) RF: 0 hydroxychloroquine 200 mg Tablet 200 mg PO BID RF: 0 metoprolol tartrate 25 mg Tablet 12.5 mg PO BID RF: 0 furosemide 40 mg tablet 40 mg PO QAM RF: 0 ergocalciferol (vitamin D2) 50,000 unit Capsule 50,000 unit PO WK RF: 0 furosemide 20 mg 20 mg PO QPM RF: 0 warfarin 4 mg Tablet 4 mg PO HS RF: 0 acetaminophen [Tylenol Extra Strength] 500 mg Tablet 500 mg PO Q4 PRN (Reason: mild pain/fever) RF: 0 dextran 70-hypromellose [Artificial Tears (PF)] Dropperette 1 drp OPHTHALMIC (EYE) BID RF: 0 vit C,C-Uo-wxeew-lutein-zeaxan [PreserVision AREDS-2] [id number] mg-unit-mg- mg Capsule 1 tab PO BID RF: 0 Visit Report Forms: [facility] Portal Stand-Alone Forms: [facility] Discharge Orders: Discharge Order (Routine); Ordered 12/07/18 Ordered By: Navdeep Carrington Admission Data Admit Date/Time: 12/05/18 08:46 Attending Provider: Navdeep Carrington Admit Provider: Navdeep Carrington Primary Care Provider: PCP,NO Other Providers: Brittaney Amato ; Esau Mazariegos Service: Telemetry
[2018-12-07] MEDS ORDERED: cephALEXin 250 MG CAP PO ONE (11:15)
[2018-12-07] MEDS ORDERED: cephALEXin 250 MG CAP PO SCH (13:00)
[2018-12-07] MEDS: FUROSEMIDE 20 MG TAB PO SCH (16:11)
[2018-12-07] MEDS: WARFARIN SOD 4 MG TAB PO SCH (16:11)
[2018-12-10] MEDS ORDERED: ERGOCALCIFEROL 50,000 UNITS CAP PO SCH (09:00)
== END 2018-12-07 16:20 | disposition home health service (06) | DRG 699 ==
LOC: ED 04:05 → 2N 08:46